=== PATIENT | female | born 1995 | race Caucasian/White ===

== ENCOUNTER 2017-03-12 01:09 | Emergency (ER) | payer BC ==
[~2017-03-12] VITALS: Ht 162.6 cm; Wt 76.2 kg
[2017-03-12 01:11] VITALS: Ht 162.6 cm; Wt 76.2 kg
[2017-03-12] MEDS ORDERED: ACETAMINOPHEN 500 MG TAB PO STA (01:35)
[2017-03-12] MEDS ORDERED: SODIUM CHLORIDE 0.9% 1000ML 1,000 ML IV STA (01:35)
[2017-03-12] MEDS ORDERED: BCPILLS PO (02:04)
[2017-03-12] MEDS ORDERED: SERT-234 PO (02:04)
[2017-03-12 02:47] VITALS: BP 95/68; PULSE 98; TEMP 37; O2SAT 98
[2017-03-12 02:57] LABS: URINE APPEARANCE CLEAR (CLEAR); URINE BILIRUBIN NEG (NEG); URINE COLOR YELLOW; URINE NITRITE NEG (NEG); URINE PH 5.5 (4.5-7.5); URINE SPECIFIC GRAVITY 1.003 (1.000-1.030); UROBILINOGEN NEG (NEG); ZZUR CULT IF INDIC CLEAN CATCH NO
[2017-03-12 03:03] LABS: MANUAL MICROSCOPIC REQUIRED? NO; REVIEW REQ? NO
[2017-03-12] MEDS ORDERED: PRED50TA PO (03:10)
[2017-03-12] MEDS ORDERED: AMOX875T PO (03:10)
--- NOTE | 2017-03-12 03:11 | EMERGENCY ROOM VISIT NOTE ---
History First contact with patient: 01:19 Chief Complaint: FLU LIKE SX Stated Complaint: FEVER,FLU History of Present Illness The patient is a 21 year old female who presents to the Emergency Department by private vehicle with her friends for evaluation of her flulike symptoms and fever. She reports that she is had flulike symptoms 1 week ago. Her symptoms improved and then yesterday her symptoms returned. She's had a fever as well as cough and nasal congestion. She reports body aches as well. She took 2 ibuprofen prior to arrival. She denies any recent sick contacts. She rates her current discomfort is 7/10. She denies any dizziness, lightheadedness, neck pain/stiffness, nausea, vomiting, abdominal pain. She is up-to-date on all vaccinations and immunizations. Review of Systems A complete 10-point Review of Systems was discussed with the patient, with pertinent positives and negatives listed in the History of Present Illness. All remaining Review of Systems questions can be considered negative unless otherwise specified. Social History Smoking Status: Never Smoker Smokeless Tobacco Use: No Alcohol Use: occasionally Drug Use: none Marital Status: single Housing Status: lives with roommate Occupation Status: [employer] student Current/Historical Medications Scheduled Amoxicillin & Pot Clavulanate (Augmentin 875-125 mg), 875 MG PO BID Control Pills ( Control Pills), 1 TAB PO DAILY Prednisone (Prednisone), 50 MG PO DAILY Sertraline (Zoloft), 100 MG PO DAILY Allergies Coded Allergies: No Known Allergies (Unverified , 03/12/17) Physical Exam Vital Signs Date Time Temp Pulse Resp B/P Pulse Ox O2 Delivery O2 Flow Rate FiO2 03/12/17 02:47 37.0 98 18 95/68 98 Room Air 03/12/17 01:11 38.5 140 20 126/78 96 Room Air Pain Rating (0-10): 7 Physical Exam VITAL SIGNS - Vital signs and nursing notes were reviewed. GENERAL - Well nourished, well developed 21-year-old female in no acute distress. Pt communicates well with provider and answers questions appropriately. SKIN - Without rash. HEAD - NC/AT with no obvious deformities. EYES - PERRL with EOMI bilaterally. Sclera without injection. Palpebral conjunctiva pink and moist. EARS - No deformities of external structures noted on gross examination bilaterally. No pain elicited with palpation of the tragus bilaterally. External auditory canals without discharge or otorrhea. Tympanic membranes pearly stark without retraction or bulging. No fluid or purulent material visualized behind the TM. Handle of malleus, umbo, cone of light, pars tensa/ flaccid all easily visualized. NOSE - Midline and without cyanosis. No purulent drainage noted. Nasal mucosa without mucus discharge. MOUTH/OROPHARYNX - Without perioral cyanosis. Buccal mucosa pink and moist and without leukoplakia. Tongue midline with equal elevation of palate bilaterally. No tonsillar hypertrophy, erythema, or exudates noted. Good dentition noted. NECK - Neck with FROM. Supple to palpation. No lymphadenopathy noted. No nuchal rigidity. LUNGS - Chest wall symmetric without accessory muscle use, intercostals retractions, or central cyanosis. Normal vesicular breath sounds CTA B/L. No wheezes, rales, or rhonchi appreciated. CARDIAC - RRR with S1/S2. No murmur, rubs, or gallops appreciated. ABDOMEN - Abdominal contour flat without pulsations or visible masses. BS normoactive all four quadrants. No tenderness, palpable masses, hepatosplenomegaly, or ascites noted. Medical Decision & Procedures ER Provider Diagnostic Interpretation: Radiological imaging and reports were reviewed by myself. Radiologist's Interpretation as follows: TWO VIEW CHEST CLINICAL HISTORY: Cough and fever. FINDINGS: PA and lateral chest radiographs are obtained. No prior studies are available for comparison at the time of dictation. The cardiomediastinal silhouette is unremarkable. The lungs and pleural spaces are clear. There is no pneumothorax. The bony thorax appears intact. IMPRESSION: No active disease in the chest. Laboratory Results Test 03/12/17 01:35 03/12/17 01:45 03/12/17 02:48 Urine Test NEG (NEG) Influenza Type A Antigen Neg for Influ A (NEG) Influenza Type B Antigen Neg for Influ B (NEG) Urine Color YELLOW Urine Appearance CLEAR (CLEAR) Urine pH 5.5 (4.5-7.5) Urine Specific [place] 1.003 (1.000-1.030) Urine Protein NEG (NEG) Urine Glucose (UA) NEG (NEG) Urine Ketones 1+ (NEG) Urine Occult Blood NEG (NEG) Urine Nitrite NEG (NEG) Urine Bilirubin NEG (NEG) Urine Urobilinogen NEG (NEG) Urine Leukocyte Esterase NEG (NEG) Date/Time Source Procedure Growth Status 4/13/17 01:40 Throat Group A Streptococcus Screen - Final SPECIMEN NEGATIVE FOR GROUP A BETA ST... Complete 03/12/17 01:40 Group A Streptococcus Screen (TADEO) - Final Group C Beta Strep Complete Medications Administered Medications (Trade) Dose Ordered Sig/Enoch Route Start Time Stop Time Status Last Admin Dose Admin Acetaminophen (Tylenol Tab) 1,000 mg NOW STAT PO 03/12/17 01:35 03/12/17 01:38 DC 03/12/17 01:54 1,000 MG Amoxicillin/ Clavulanate Potassium (Augmentin Tab) 875 mg ONE ONCE PO 03/12/17 03:15 03/12/17 03:16 DC 03/12/17 03:17 875 MG Amoxicillin/ Clavulanate Potassium (Augmentin 875MG Home Pack) 1 homepack UD ONCE PO 03/12/17 03:15 03/12/17 03:16 DC 03/12/17 03:17 1 HOMEPACK Prednisone (PredniSONE TAB) 60 mg NOW STAT PO 03/12/17 03:07 03/12/17 03:09 DC 03/12/17 03:17 60 MG ED Course Patient was seen and evaluated by myself. Patient declined IV for further evaluation. Urine was neck. Urinalysis demonstrate no signs of infection. Rapid strep was negative. Influenza was negative. Chest x-ray was unremarkable. Laboratory results and imaging studies were reviewed with the patient who acknowledges understanding. The patient was provided initial dose of Augmentin and prednisone while in the emergency department. She was encouraged to follow-up with [facility] from today's visit. She was educated on worrisome symptoms for return visit to the emergency department. Patient discharged home afebrile and in good condition. Medical Decision Given the patient's presentation and stated complaints, I did elect to perform the above-mentioned workup. The patient initially had labs ordered to gambreler helper in further diagnosis comfort. Given her ongoing symptoms. She had a little declines IV. I did explain the costs and benefits of doing this. She still declines. The patient is had ongoing symptoms for the past week. She has symptoms of sinusitis. She was treated with Augmentin and prednisone for the symptoms. She has no meningeal findings. Her exam is otherwise unremarkable. The patient will follow-up with [facility] from today's visit. She will return to the emergency department for any changing or worsening symptoms. Patient discharged home afebrile and in good condition. In the evaluation and treatment of this patient, the following differential diagnoses were considered: Strep, mono, influenza, meningitis, syphilis, pneumonia, bronchitis, UTI, amongst others. Impression Primary Impression: Influenza-like symptoms Additional Impressions: Fever Sinusitis Departure Information Dispostion Home / Self-Care Condition GOOD Prescriptions Prednisone (Prednisone) 50 Mg Tab 50 MG PO DAILY for 4 Days, #4 TAB Prov: Calvin Mary PA-C 03/12/17 Amoxicillin & Pot Clavulanate (Augmentin 875-125 mg) 1 Tab Tab 875 MG PO BID for 10 Days, #20 TAB Prov: Calvin Mary PA-C 03/12/17 Referrals [facility] (PCP) Patient Instructions My [facility] Additional Instructions You've been seen in the emergency department today for your fever, influenza- like symptoms, and sinusitis. You were prescribed Augmentin to be taken as prescribed. This is an antibiotic. All antibiotics have the potential to cause diarrhea. Stop this medication and contact a medical provider if you were to develop any significant adverse side effects including: wheezing, shortness of breath, passing out, vomiting, or a diffuse rash. Always take antibiotics as directed and COMPLETE the ENTIRE course regardless of the improvement of your symptoms. You have been prescribed Prednisone 50 mg to be taken orally once a day for the next 4 days. This is an anti-inflammatory medicine to be used to help minimize your symptoms. You should take the COMPLETE course of the medication. For pain control, you can use the following [id number]-[id number] medicines (if >12 yo): - Regular strength (325mg/tab) Tylenol (acetaminophen) 2 tabs every 4-6 hours as needed. Do not exceed 12 tablets in a 24 hour period. Avoid taking more than 4 grams (4000 mg) of Tylenol per day. This includes any other sources of acetaminophen you may take on a regular basis. - Regular strength (200 mg/tab) Advil (ibuprofen) 1-2 tabs every 4-6 hours as needed. Do not exceed a dose of 3200 mg per day. Follow-up with [facility] from today's visit. Return for any changing or worsening symptoms. Problem Qualifiers Additional Impressions: Fever Fever type: unspecified Qualified Codes: R50.9 - Fever, unspecified Sinusitis Sinusitis location: maxillary Chronicity: acute Recurrence: non-recurrent Qualified Codes: J01.00 - Acute maxillary sinusitis, unspecified
[2017-03-12] MEDS ORDERED: AMOXICILLIN/CLAVULANATE TAB 875 MG TAB PO ONE (03:15)
[2017-03-12] MEDS ORDERED: AMOXICIL/CLAVU 875MG HOME PACK PO ONE (03:15)
--- NOTE | 2017-03-12 08:18 | DIAGNOSTIC IMAGING REPORT ---
TWO VIEW CHEST CLINICAL HISTORY: Cough and fever. FINDINGS: PA and lateral chest radiographs are obtained. No prior studies are available for comparison at the time of dictation. The cardiomediastinal silhouette is unremarkable. The lungs and pleural spaces are clear. There is no pneumothorax. The bony thorax appears intact. IMPRESSION: No active disease in the chest. Electronically signed by: Antolin Stack M.D. 03/12/2017 8:16 AM Dictated Date/Time: 03/12/2017 8:16 AM
== END 2017-03-12 03:17 | disposition home or self-care (01) ==
LOC: C.EDB 01:11
DX: R50.9 Fever, unspecified (principal); J01.00 Acute maxillary sinusitis, unspecified; Z79.3 Long term (current) use of hormonal contraceptives; Z79.899 Other long term (current) drug therapy